=== PATIENT | female | born 1945 | race Caucasian/White ===

== ENCOUNTER → 2016-08-16 | Outpatient (REF) ==
[~2016-08-16] MED LIST: ASPIRIN E.C. 8181 MG PO; CELEXA40 MG PO; LIPITOR 40MG TA40 MG PO; PRIL40 PO; SYNTHROID0.075 MG/T PO; VITAMIN D31000 IU PO; ZOFRAN ODT4 MG PO
== END ==
LOC: ZLAB.WCH 11:46
DX: Z01.89 Encounter for other specified special examinations (principal)

== ENCOUNTER 2017-02-23 12:26 | Emergency (ER) | payer MEDICARE ==
[~2017-02-23] VITALS: Ht 160 cm; Wt 70.9 kg
[2017-02-23 12:31] VITALS: BP 125/54; TEMP 97.4
[2017-02-23] MEDS ORDERED: CELEXA40 MG PO (12:36)
[2017-02-23] MEDS ORDERED: PRIL40 PO (12:36)
[2017-02-23] MEDS ORDERED: ZOFRAN ODT4 MG PO (13:49)
[2017-02-23 14:05] VITALS: PULSE 68
== END 2017-02-23 14:06 | disposition home or self-care (01) ==
LOC: COL.ER 12:26
DX: K80.20 Calculus of gallbladder without cholecystitis without obstruction (principal); R11.0 Nausea

== ENCOUNTER 2017-02-27 13:49 | Day surgery (SDC) | payer MEDICARE ==
[~2017-02-27] VITALS: Ht 158.8 cm; Wt 70.4 kg
[~2017-02-27 13:49] MED LIST changes: -ASPIRIN E.C. 8181 MG PO; -LIPITOR 40MG TA40 MG PO; -SYNTHROID0.075 MG/T PO; -VITAMIN D31000 IU PO
[2017-02-27 14:18] VITALS: BP 122/68; PULSE 67; TEMP 98.6
[2017-02-27] MEDS ORDERED: SYNTHROID0.075 MG/T PO (14:24)
[2017-02-27] MEDS ORDERED: CELEXA40 MG PO (14:24)
[2017-02-27] MEDS ORDERED: ASPIRIN E.C. 8181 MG PO (14:25)
[2017-02-27] MEDS ORDERED: LIPITOR 40MG TA40 MG PO (14:25)
[2017-02-27] MEDS ORDERED: VITAMIN D31000 IU PO (14:26)
[2017-02-27 15:25] VITALS: BP 127/66; PULSE 76; TEMP 98.7
[2017-02-27 15:30] VITALS: BP 131/59; PULSE 67
[2017-02-27 15:45] VITALS: BP 134/103; PULSE 65
[2017-02-27 16:00] VITALS: BP 100/53; PULSE 68
[2017-02-27 16:15] VITALS: BP 106/61; PULSE 67
== END 2017-02-27 16:24 | disposition home or self-care (01) ==
LOC: SDCO 13:49
DX: K29.30 Chronic superficial gastritis without bleeding (principal); K30 Functional dyspepsia; K80.80 Other cholelithiasis without obstruction
CPT/HCPCS: OP; J2250; J3010; J7030

== ENCOUNTER → 2017-06-22 | Outpatient (CLI) | payer MEDICARE ==
[~2017-06-22] MED LIST changes: +ASPIRIN E.C. 8181 MG PO; +LIPITOR 40MG TA40 MG PO; +SYNTHROID0.075 MG/T PO; +VITAMIN D31000 IU PO
== END ==
LOC: COL.RAD 13:56
DX: G93.89 Other specified disorders of brain (principal); Z98.890 Other specified postprocedural states; Z86.79 Personal history of other diseases of the circulatory system

== ENCOUNTER → 2017-09-03 | Outpatient (CLI) | payer MEDICARE | LOC: COL.RAD 07:27 | DX: R11.0 Nausea (principal) | CPT/HCPCS: A9541 ==

== ENCOUNTER → 2018-05-28 | Outpatient (CLI) | payer MEDICARE | LOC: MC.RAD 08:38 | DX: Z00.00 Encounter for general adult medical examination without abnormal findings (principal); Z12.31 Encounter for screening mammogram for malignant neoplasm of breast; R92.0 Mammographic microcalcification found on diagnostic imaging of breast ==

== ENCOUNTER → 2018-06-01 | Outpatient (CLI) | payer MEDICARE | LOC: MC.RAD 14:24 | DX: R92.1 Mammographic calcification found on diagnostic imaging of breast (principal) ==

== ENCOUNTER → 2024-05-27 | Outpatient (CLI) | payer MEDICARE | LOC: COL.RAD 07:30 | DX: M25.552 Pain in left hip (principal); M79.605 Pain in left leg ==